=== PATIENT | female | born 1995 | race Two or more races ===

== ENCOUNTER 2017-02-01 08:01 | Emergency (ER) | payer OTHER ==
--- NOTE | 2017-02-01 08:23 | PDOC ---
History of Present Illness - General Stated Complaint: G-TUBE Time Seen by Provider: 02/01/17 08:20 History Source: Care Provider (Yary), [facility] Records - History of Present Illness Travel History: No Initial Comments: 02/01/17 08:36 [facility] H/O: Profound MR, CP, spastic quadriplegia, epilepsy, GERD reflux, cyclic vomiting, G -tube, nonverbal, failure to thrive, mild myopia, astigmatism 21 yo F biba acc with an aid (Arianne) who states her G-tube fell out sometime during this morning. Past History - Past Medical History Allergies/Adverse Reactions: Allergies Allergy/AdvReac Type Severity Reaction Status Date / Time No Known Allergies Allergy Verified 02/01/17 08:33 Home Medications: Ambulatory Orders Lacosamide [Vimpat -] 150 mg PEG BID 02/01/17 Loperamide HCl [Imodium -] 2 mg PEG TID PRN 02/01/17 Mag Carb/Al Hydrox/Alginic AC [Riginic Suspension] 10 ml PEG DAILY 02/01/17 Phenobarbital Liquid - [Phenobarbital Liquid 20 MG/5 ML -] 81 mg PEG BID Ranitidine Oral Solution [Zantac] 15 mg GT 02/01/17 Simethicone Liquid [Mylicon] 40 mg PEG BID 02/01/17 Topiramate [Topiramate ER] 100 mg PEG BID 02/01/17 Trimethobenzamide HCl [Tigan -] 300 mg PEG BID 02/01/17 Review of Systems - Review of Systems Comments:: 02/01/17 08:53 UTO pt is non verbal *Physical Exam - Physical Exam Comments: 02/01/17 08:53 GENERAL: CP HEENT: Normocephalic, atraumatic. PERRLA, EOMI. No conjunctival pallor. Sclera are non- icteric. Moist mucous membranes. Oropharynx is clear. NECK: Supple. Full ROM. No JVD. Carotid pulses 2+ and symmetric, without bruits. No thyromegaly. No lymphadenopathy. CARDIOVASCULAR: Regular rate and rhythm. No murmurs, rubs, or gallops. Distal pulses are 2+ and symmetric. PULMONARY: No evidence of respiratory distress. Lungs clear to auscultation bilaterally. No wheezing, rales or rhonchi. ABDOMINAL: Soft. Non-tender. Non-distended. No rebound or guarding. No organomegaly. Normoactive bowel sounds. EXTREMITIES: No cyanosis. No clubbing. No edema. No calf tenderness. SKIN: Warm and dry. Normal capillary refill. No rashes. No jaundice. ED Treatment Course - RADIOLOGY Radiograph Interpretation: 02/01/17 10:50 XR flat /uptr contrast in stomach Progress Note - Progress Note Progress Note: 1058hrs: Spoke to DR. Washburn/ [phone] advised the G tube is back in proper placement. "send her back" *DC/Admit/Observation/Transfer Diagnosis at time of Disposition: Gastrostomy tube in place - Discharge Dispostion Disposition: HOME Condition at time of disposition: Stable Admit: No - Referrals Referrals: Dharmesh Washburn MD [Primary Care Provider] - Hans Sutherland MD [Staff Physician] - - Patient Instructions Printed Discharge Instructions: How to Care for Your PEG Tube Additional Instructions: Follow up with your physician Return to the ER for recurrent symptoms
[2017-02-01 09:15] VITALS: TEMP 97.8; BMI 51.6
[2017-02-01 11:13] VITALS: BP 115/60; PULSE 68
== END 2017-02-01 13:23 | disposition home or self-care (01) ==
LOC: JER 08:01
PROC: 0D20XUZ Change Feeding Device in Upper Intestinal Tract, External Approach (ICD-10-PCS; principal; 2017-02-01)
DX: Z43.1 Encounter for attention to gastrostomy (principal); G80.0 Spastic quadriplegic cerebral palsy; F73 Profound intellectual disabilities; K21.9 Gastro-esophageal reflux disease without esophagitis; R62.7 Adult failure to thrive; H52.10 Myopia, unspecified eye; H52.209 Unspecified astigmatism, unspecified eye
CPT/HCPCS: 43760; 74000-TC; 99281-25

== ENCOUNTER 2018-10-26 06:24 | Emergency (ER) | payer OTHER ==
[2018-10-26 06:49] VITALS: TEMP 97.6; BMI 27.1
--- NOTE | 2018-10-26 07:14 | PDOC ---
Attending Attestation - Resident Resident Name: Derek Donis - HPI HPI: 10/26/18 09:02 Pt presents to the ED after removing her G tube. Unclear when tube was placed, but it has been replaced several times in our department, most recently in 2017. Tube was discovered pulled out at 5:50. - Physicial Exam PE: 10/26/18 09:09 pt is alert and in NAD, at her baseline mental status. Abdomen is soft, non tender and non distended. No inflammation or tenderness around G tube opening. - Medical Decision Making 10/26/18 16:51 Pt presents to the Ed complaining that her G tube has been pulled out. replaced in the ED. Tube is in place on CT. Will discharge home.
--- NOTE | 2018-10-26 07:17 | PDOC ---
History of Present Illness - General Chief Complaint: G Tube Problem Stated Complaint: G-TUBE PROBLEM Time Seen by Provider: 10/26/18 07:14 - History of Present Illness Initial Comments: The pt is a 22F w/ a history of developmental delay, epilepsy, and g-tube placement who presents s/p self-accidental removal of her G-tube at 0550 this morning. The pt has had this occur several times before and was previously replaced with a 16F g-tube. Pt attendant denies the pt having any recent illness or fevers and is at her baseline function today. 10/26/18 07:32 Past History - Past Medical History Allergies/Adverse Reactions: Allergies Allergy/AdvReac Type Severity Reaction Status Date / Time No Known Allergies Allergy Verified 10/26/18 06:47 Home Medications: Ambulatory Orders Lacosamide [Vimpat -] 200 mg PEG BID 02/01/17 Loperamide HCl [Imodium -] 2 mg PEG TID PRN 02/01/17 Mag Carb/Aluminum Hydrox/Algin [Riginic Suspension] 10 ml PEG DAILY 02/01/17 Simethicone Liquid [Mylicon] 40 mg PEG BID 02/01/17 Topiramate [Topiramate ER] 200 mg PEG BID 02/01/17 Trimethobenzamide HCl [Tigan -] 300 mg PEG TID 02/01/17 Acetaminophen [Tylenol] 325 mg GT Q4H PRN 02/14/18 Calcium Carbonate [Tums Ultra] 500 mg GT DAILY 02/14/18 Lacosamide [Vimpat -] 50 mg GT ASDIR 02/14/18 Omeprazole Magnesium [Prilosec] 20 mg GT DAILY 02/14/18 Pedi Multivit 158/Iron/Vit K1 [Cerovite Jr Tablet Chew] 1 each GT DAILY Phenobarbital 16.2 mg GT BID 02/14/18 Phenobarbital 64.8 mg GT BID 02/14/18 COPD: No GI Disorders: Yes (REFLUX,CYCLIC VOMITING) Seizures: Yes - Surgical History GI Surgery: Yes (PEG TUBE) - Immunization History Immunization Up to Date: Yes - Suicide/Smoking/Psychosocial Hx Smoking History: Unknown if ever smoked Have you smoked in the past 12 months: No Information on smoking cessation initiated: No Hx Alcohol Use: No Drug/Substance Use Hx: No Substance Use Type: None Review of Systems - Review of Systems Able to Perform ROS?: No (2/2 medical condition) *Physical Exam - Vital Signs Last Vital Signs Temp Pulse Resp BP Pulse Ox 97.6 F 92 H 16 88/57 L 97 10/26/18 06:47 10/26/18 06:47 10/26/18 06:47 10/26/18 06:47 10/26/18 06:47 - Physical Exam Comments: GENERAL: Awake, in no acute distress HEAD: No signs of trauma, normocephalic, atraumatic EYES: PERRLA, EOMI, sclera anicteric, conjunctiva clear LUNGS: No distress, clear to auscultation bilaterally HEART: Regular rate and rhythm, normal S1 and S2, no murmurs appreciated, peripheral pulses normal and equal bilaterally ABDOMEN: Soft, g-tube entry site w/o surrounding erythema or active discharge, no grimace to palpation SKIN: Warm, Dry 10/26/18 07:38 Medical Decision Making - Medical Decision Making The pt is a 22F w/ a history of developmental delay, seizure d/o, and g-tube in place who presents for evaluation s/p accidental self-removal of her g-tube at 0550 this morning. 16F g-tube placed; 3cm at the hub Will obtain placement film 10/26/18 07:46 Repeat Abdomen XR pending read -If g-tube in place will plan for D/C 10/26/18 12:08 Plain film not adequate for G-tube placement, will obtain CT abdomen for verification 10/26/18 12:54 CT w/ verification of tube placement Dr. Woodward notified and pt to go back to [facility] 10/26/18 14:12 *DC/Admit/Observation/Transfer Diagnosis at time of Disposition: Gastrostomy tube in place - Discharge Dispostion Disposition: HOME Condition at time of disposition: Stable Decision to Admit order: No - Referrals Referrals: Bharti Woodward MD [Primary Care Provider] - - Patient Instructions Printed Discharge Instructions: Gastrostomy: Permanent and Temporary Additional Instructions: You were seen in the Emergency Department for evaluation after accidental g- tube displacement. Review the handout provided at discharge. Follow up with your primary care physician within the week. Return to the Emergency Department if your tube falls out again, you develop fevers, leakage around the tube, redness at the insertion site, or any new/concerning symptoms. - Post Discharge Activity
[2018-10-26 10:13] VITALS: BP 92/71; PULSE 72
== END 2018-10-26 16:00 | disposition home or self-care (01) ==
LOC: JER 06:24
PROC: 0D20XUZ Change Feeding Device in Upper Intestinal Tract, External Approach (ICD-10-PCS; principal; 2018-10-26)
DX: K94.29 Other complications of gastrostomy (principal); G40.909 Epilepsy, unspecified, not intractable, without status epilepticus; R62.59 Other lack of expected normal physiological development in childhood
CPT/HCPCS: 74018-TC-FY; 74150-TC; 99282-25

== ENCOUNTER 2019-04-25 01:04 | Emergency (ER) | payer OTHER ==
--- NOTE | 2019-04-25 01:34 | PDOC ---
Attending Attestation - Resident Resident Name: Bulmaro Machado - ED Attending Attestation I have performed the following: I have examined & evaluated the patient, The case was reviewed & discussed with the resident, I agree w/resident's findings & plan - HPI HPI: 04/25/19 01:52 see resident hpi - Physicial Exam PE: 04/25/19 01:52 agree with resident exam - Medical Decision Making 04/25/19 01:52 23 yo female with dislodged g tube replaced in ED with 16F immediate return of gastric feed content will d/c to facility
[2019-04-25 01:46] VITALS: BP 89/64; PULSE 86; TEMP 97.8; BMI 21.4
--- NOTE | 2019-04-25 01:51 | PDOC ---
History of Present Illness - General Chief Complaint: G Tube Problem Stated Complaint: G-TUBE PROBLEM Time Seen by Provider: 04/25/19 01:31 History Source: Patient Exam Limitations: Clinical Condition, Physical Impairment - History of Present Illness Initial Comments: Marilia Garcia is a 23 yo F w a hx of Profound MR, CP, spastic quadriplegia, epilepsy, GERD reflux, cyclic vomiting, G-tube, nonverbal, failure to thrive, mild myopia, astigmatism BIBA [facility] for [facility]/ [facility] who presents for G tube dislodgement. There is an aid from the [facility] at bedside who confirms that the patient pulled out her G- tube. She has been seen in this ER several times for the same issue most recently on 10/26/18. Patient nurse aide at bedside states that patient was sleep and G tube dislodged 45 minutes [employer]. Aide at bedside denies N/V, F,C, SOB , urinary complaints, diarrhea, constipation, weakness. Per prior chart review patient has always received 16 italian G-tube replacements in this ED. Past History - Past Medical History Allergies/Adverse Reactions: Allergies Allergy/AdvReac Type Severity Reaction Status Date / Time No Known Allergies Allergy Verified 10/26/18 06:47 Home Medications: Ambulatory Orders Lacosamide [Vimpat -] 200 mg PEG BID 02/01/17 Loperamide HCl [Imodium -] 2 mg PEG TID PRN 02/01/17 Mag Carb/Aluminum Hydrox/Algin [Riginic Suspension] 10 ml PEG DAILY 02/01/17 Simethicone Liquid [Mylicon] 40 mg PEG BID 02/01/17 Topiramate [Topiramate ER] 200 mg PEG BID 02/01/17 Trimethobenzamide HCl [Tigan -] 300 mg PEG TID 02/01/17 Acetaminophen [Tylenol] 325 mg GT Q4H PRN 02/14/18 Calcium Carbonate [Tums Ultra] 500 mg GT DAILY 02/14/18 Lacosamide [Vimpat -] 50 mg GT ASDIR 02/14/18 Omeprazole Magnesium [Prilosec] 20 mg GT DAILY 02/14/18 Pedi Multivit 158/Iron/Vit K1 [Cerovite Jr Tablet Chew] 1 each GT DAILY Phenobarbital 16.2 mg GT BID 02/14/18 Phenobarbital 64.8 mg GT BID 02/14/18 COPD: No GI Disorders: Yes (REFLUX,CYCLIC VOMITING) Seizures: Yes - Surgical History GI Surgery: Yes (PEG TUBE) - Immunization History Immunization Up to Date: Yes - Psycho Social/Smoking Cessation Hx Smoking History: Unknown if ever smoked Have you smoked in the past 12 months: No Hx Alcohol Use: No Drug/Substance Use Hx: No Substance Use Type: None Review of Systems - Review of Systems Able to Perform ROS?: No (non-verbal) *Physical Exam - Vital Signs Last Vital Signs Temp Pulse Resp BP Pulse Ox 97.8 F 86 17 89/64 L 04/25/19 01:39 04/25/19 01:39 04/25/19 01:39 04/25/19 01:39 - Physical Exam General Appearance: Yes: Nourished. No: Apparent Distress HEENT: positive: Normal ENT Inspection Neck: positive: Supple Respiratory/Chest: positive: Lungs Clear Cardiovascular: positive: Regular Rhythm, Regular Rate Vascular Pulses: Dorsalis-Pedis (R): 2+, Doralis-Pedis (L): 2+ Gastrointestinal/Abdominal: positive: Normal Bowel Sounds, Other (patent G-tube foramen. No surrounding erythema or warmth. ). negative: Tender Rectal Exam: positive: deferred Lymphatic: negative: Adenopathy Musculoskeletal: positive: Decreased Range of Motion Extremity: positive: Normal Capillary Refill, Normal Inspection Integumentary: positive: Normal Color, Dry, Warm Neurologic: positive: Alert, Normal Mood/Affect, Respond to painful stimul Medical Decision Making - Medical Decision Making Marilia Garcia is a 23 yo F w a hx of Profound MR, CP, spastic quadriplegia, epilepsy, GERD reflux, cyclic vomiting, G-tube, nonverbal, failure to thrive, mild myopia, astigmatism BIBA from [facility] who presents for G tube dislodgement. There is an aid from the [place] [facility] at bedside who confirms that the patient pulled out her G- tube. She has been seen in this ER several times for the same issue most recently on 10/26/18. Patient nurse aide at bedside states that patient was sleep and G tube dislodged 45 minutes [employer]. Aide at bedside denies N/V, F,C, SOB , urinary complaints, diarrhea, constipation, weakness. Per prior chart review patient has always received 16 italian G-tube replacements in this ED. Vital Signs Temp Pulse Resp BP Pulse Ox 97.8 F 86 17 89/64 L 04/25/19 01:39 04/25/19 01:39 04/25/19 01:39 04/25/19 01:39 MDM: Patient presents with dislodged G-tube Plan: Replace G-tube with 16 italian feeding tube. 16 italian G-tube placed with immediate return of gastric contents Dispo: Back to Assisted living home. *DC/Admit/Observation/Transfer Diagnosis at time of Disposition: Gastrostomy tube in place - Discharge Dispostion Disposition: [facility] Condition at time of disposition: Improved Decision to Admit order: No - Referrals Referrals: Hans Sutherland MD [Staff Physician] - - Patient Instructions Printed Discharge Instructions: How to Care for Your PEG Tube Additional Instructions: Please follow up with your GI doctor in the next 3 days to make sure your G tube is working well and has no problems. Come back to the ER immediately if your G-tube comes out or you have any other new or worsening concerns. Thank you for coming to the [facility] ER. We hope you feel better soon ! Print Language: DUTCH - Post Discharge Activity Discharge - Discharge Information Problems reviewed: Yes Clinical Impression/Diagnosis: Gastrostomy tube in place Condition: Improved Disposition: [facility]IOR [facility]IVING [facility] - Follow up/Referral Referrals: Hans Sutherland MD [Staff Physician] - - Patient Discharge Instructions Patient Printed Discharge Instructions: How to Care for Your PEG Tube Additional Instructions: Please follow up with your GI doctor in the next 3 days to make sure your G tube is working well and has no problems. Come back to the ER immediately if your G-tube comes out or you have any other new or worsening concerns. Thank you for coming to the [facility] ER. We hope you feel better soon ! Print Language: DUTCH - Post Discharge Activity
== END 2019-04-25 04:20 ==
LOC: JER 01:04
PROC: 0D20XUZ Change Feeding Device in Upper Intestinal Tract, External Approach (ICD-10-PCS; principal; 2019-04-25)
DX: Z43.1 Encounter for attention to gastrostomy (principal); G80.0 Spastic quadriplegic cerebral palsy; G40.909 Epilepsy, unspecified, not intractable, without status epilepticus; K21.9 Gastro-esophageal reflux disease without esophagitis; G43.A0 Cyclical vomiting, in migraine, not intractable; R62.51 Failure to thrive (child); H52.10 Myopia, unspecified eye
CPT/HCPCS: 99282-25

== ENCOUNTER 2024-01-29 16:24 | Emergency (ER) | payer OTHER ==
[2024-01-29 16:31] VITALS: TEMP 98.3; BMI 25.7
[2024-01-29 17:49] LABS: BASO % 0.7 % (0-2.0); EOS % 0.6 % (0-4.5); HEMOGLOBIN 14.4 GM/dL (10.7-15.3); LYMPH % 22.1 % (8-40); MCH 30.4 pg (25.7-33.7); MCHC 33.6 g/dl (32.0-36.0); MEAN CELL VOLUME 90.6 fl (80-96); MEAN PLT VOLUME 6.1 fl (7.5-11.1); MONO % 6.4 % (3.8-10.2); NEUT % 70.2 % (42.8-82.8); PLATELET COUNT 591 10^3/uL (134-434); RBC 4.75 M/mm3 (3.60-5.2); RDW 12.8 % (11.6-15.6); WHITE BLOOD COUNT 6.1 K/mm3 (4.0-10.0)
[2024-01-29] MEDS: SODIUM CHLORIDE 1,000 ML IV STA (17:49)
[2024-01-29] MEDS: ONDANSETRON 4 MG/2 ML VIAL IVPUSH ONE (17:49)
[2024-01-29] MEDS ORDERED: ONDANSETRON 4 MG/2 ML VIAL ONE (17:50)
[2024-01-29 17:57] LABS: INR 1.07 (0.83-1.09); PROTHROMBIN TIME (PATIENT) 12.3 SEC (9.7-13.0)
[2024-01-29 18:00] LABS: ACTIVATED PTT 30.7 SECONDS (25.2-36.5)
[2024-01-29 18:07] LABS: POTASSIUM 3.4 mmol/L (3.5-5.1)
[2024-01-29 18:09] LABS: CALCIUM 9.7 mg/dL (8.5-10.1)
[2024-01-29 18:10] LABS: ALBUMIN 3.8 g/dl (3.4-5.0); BLOOD UREA NITROGEN 9.7 mg/dL (7-18); MAGNESIUM 2.2 mg/dL (1.8-2.4)
[2024-01-29 18:13] LABS: CREATININE 0.6 mg/dL (0.55-1.3)
[2024-01-29 18:14] LABS: BILIRUBIN,TOTAL 0.2 mg/dL (0.2-1); TOT PROT 7.9 g/dl (6.4-8.2)
[2024-01-29] MEDS ORDERED: POTASSIUM CHLORIDE ORAL LIQUID 20 MEQ/15 ML ONE ×2 (20:16→21:48)
[2024-01-29 20:46] LABS: EPI CELLS 33 /uL (0-25.1); HYALINE CASTS 3 /uL (0-3.1); URINE APPEARANCE CLEAR; URINE BACTERIA 23 /uL (0-1359); URINE BILIRUBIN 1+ (NEGATIVE); URINE COLOR DK YELLOW; URINE GLUCOSE (UA) NEGATIVE (NEGATIVE); URINE KETONE 2+ (NEGATIVE); URINE LEUK ESTERASE 1+ (NEGATIVE); URINE NITRITE NEGATIVE (NEGATIVE); URINE PROTEIN 1+ (NEGATIVE); URINE RBC 12 /uL (0-23.9); URINE WBC 51 /uL (0-25.8)
[2024-01-29] MEDS: POTASSIUM CHLORIDE ORAL LIQUID 20 MEQ/15 ML GT ONE (22:04)
[2024-01-29 22:09] VITALS: BP 110/70; PULSE 89; RESP 16
== END 2024-01-30 00:41 | disposition home or self-care (01) ==
LOC: JER 16:24
PROC: 3E033GC Introduction of Other Therapeutic Substance into Peripheral Vein, Percutaneous Approach (ICD-10-PCS; principal; 2024-01-29)
PROC: 3E0337Z Introduction of Electrolytic and Water Balance Substance into Peripheral Vein, Percutaneous Approach (ICD-10-PCS; 2024-01-29)
DX: R11.2 Nausea with vomiting, unspecified (principal); R19.7 Diarrhea, unspecified; R10.30 Lower abdominal pain, unspecified; Z20.822 Contact with and (suspected) exposure to COVID-19
CPT/HCPCS: 0241U-QW; 36415; 74176-TC; 80053; 81003; 83605; 83690; 83735; 84703; 85025; 85610; 85730; 86850; 86900; 86901; 87086; 99284-25

== ENCOUNTER 2025-02-22 11:22 | Inpatient (IN) | payer OTHER ==
[2025-02-22] MEDS ORDERED: ACETAMINOPHEN INJECTION 100 ML ONE (12:29)
[2025-02-22] MEDS: ACETAMINOPHEN 1000 MG/100 ML BAG IVPB ONE (12:31)
[2025-02-22] MEDS: SODIUM CHLORIDE 0.9% 500 ML INFUS.BAG IV ONE ×2 (12:31→16:37)
[2025-02-22] MEDS: LORazepam 2 MG/ML SDV VIAL IVPUSH ONE (12:45)
[2025-02-22] MEDS ORDERED: PIPERACILLIN/TAZOB 4.5 GM 4.5 GM/100 ML BAG IVPB ONE (13:11)
[2025-02-22] MEDS: PIPERACILLIN/TAZOB 4.5 GM 4.5 GM in DEXTROSE 5%-WATER 100 ML IVPB ONE (13:25)
[2025-02-22 13:35] LABS: EPI CELLS 21 /uL (0-25.1); HYALINE CASTS 4 /uL (0-3.1); URINE APPEARANCE CLOUDY; URINE BACTERIA 30 /uL (0-1359); URINE BILIRUBIN NEGATIVE (NEGATIVE); URINE COLOR DK YELLOW; URINE GLUCOSE (UA) NEGATIVE (NEGATIVE); URINE KETONE 1+ (NEGATIVE); URINE LEUK ESTERASE 1+ (NEGATIVE); URINE NITRITE NEGATIVE (NEGATIVE); URINE PROTEIN 1+ (NEGATIVE); URINE RBC 49 /uL (0-23.9); URINE UROBILINOGEN 1.0 mg/dL (0.2-1.0); URINE WBC 12 /uL (0-25.8)
[2025-02-22] MEDS ORDERED: ONDANSETRON 4 MG/2 ML VIAL ONE (13:49)
[2025-02-22 13:52] LABS: BG HCT 39.0 % (32.4-45.2); VENOUS BASE EXCESS -4.2 mmol/L (-2-2); VENOUS O2 SATURATION 82.9 % (70-80); VENOUS PCO2 35.6 mmHg (38-52); VENOUS PH 7.374 (7.310-7.410)
[2025-02-22 13:59] LABS: ABSOLUTE IMMATURE GRANULOCYTES 0.03 x10^3/uL (0.0-0.031); BASOPHILS # 0.03 x10^3/uL (0.01-0.08); EOSINOPHIL % 0.0 % (0.7-5.8); EOSINOPHILS # 0.00 x10^3/uL (0.04-0.36); MCHC 32.0 g/dl (32.2-35.5); MEAN CELL VOLUME 93.4 fl (79.4-94.8); MEAN PLT VOLUME 8.5 fl (9.4-12.3); MONOCYTE # 0.23 x10^3/uL (0.24-0.86); MONOCYTE % 2.9 % (4.7-12.5); RDW 12.0 % (12.1-16.5)
[2025-02-22] MEDS: ONDANSETRON 4 MG/2 ML VIAL IVPUSH ONE (14:00)
[2025-02-22] MEDS ORDERED: VANCOMYCIN 1 GRAM (PRE-DOCKED) 1,000 MG/250 ML BAG IVPB ONE (14:01)
[2025-02-22 14:08] LABS: INR 1.19 (0.83-1.09); PROTHROMBIN TIME (PATIENT) 13.1 SEC (9.7-13.0)
[2025-02-22 14:11] LABS: ACTIVATED PTT 28.7 SECONDS (25.2-36.5)
[2025-02-22] MEDS: VANCOMYCIN 1,000 MG in DEXTROSE 5%-WATER - 250 ML IVPB ONE ×2 (14:11→14:14)
[2025-02-22] MEDS: PIPERACILLIN/TAZOB 3.375 GM 3.375 GM in DEXTROSE 5%-WATER - 50 ML IVPB ONE (14:14)
[2025-02-22 14:29] LABS: CO2 23.0 mmol/L (21-32); GLUCOSE,RANDOM 127.0 mg/dL (74-106)
[2025-02-22 14:32] LABS: CREATININE 0.5 mg/dL (0.55-1.3); SGOT/AST 24.0 U/L (15-37); SGPT/ALT 46.0 U/L (13-61)
[2025-02-22 14:33] LABS: TOT PROT 6.4 g/dl (6.4-8.2)
[2025-02-22 14:35] LABS: ALK PHOS 103.0 U/L (45-117)
[2025-02-22] MEDS ORDERED: PANTOPRAZOLE SODIUM 40 MG VIAL ONE ×2 (14:38→19:46)
[2025-02-22] MEDS: PANTOPRAZOLE SODIUM 40 MG VIAL IVPUSH ONE (14:52)
[2025-02-22 15:33] LABS: HIV INTERPRETATION NEGATIVE (NEGATIVE)
[2025-02-22 15:36] LABS: HCV DIAGNOSTIC IN-HOUSE W/RFLX NON-REACTIVE (NONREACTIVE)
[2025-02-22 16:13] LABS: MCHC 32.7 g/dl (32.2-35.5); MEAN CELL VOLUME 91.7 fl (79.4-94.8); MEAN PLT VOLUME 8.1 fl (9.4-12.3); RDW 11.9 % (12.1-16.5)
[2025-02-22] MEDS: SODIUM CHLORIDE 1,000 ML IV STA (19:40)
[2025-02-22] MEDS: PANTOPRAZOLE SODIUM 160 MG in SODIUM CHLORIDE 290 ML IVPB SCH (20:05)
[2025-02-22] MEDS ORDERED: TOPIRAMATE PEG SCH (20:32)
[2025-02-23] MEDS: PIPERACILLIN/TAZOB 3.375 GM 3.375 GM in DEXTROSE 5%-WATER - 50 ML IVPB SCH (02:08)
[2025-02-23] MEDS ORDERED: LORazepam 4 MG/1 ML VIAL IVPUSH PRN (06:30)
[2025-02-23 08:49] LABS: MCHC 31.4 g/dl (32.2-35.5); MEAN CELL VOLUME 94.4 fl (79.4-94.8); MEAN PLT VOLUME 8.7 fl (9.4-12.3); RDW 12.0 % (12.1-16.5)
[2025-02-23 09:33] LABS: CO2 26 mmol/L (21-32); GLUCOSE,RANDOM 100 mg/dL (74-106)
[2025-02-23 09:36] LABS: CREATININE 0.3 mg/dL (0.55-1.3); SGOT/AST 23 U/L (15-37); SGPT/ALT 39 U/L (13-61)
[2025-02-23 09:38] LABS: TOT PROT 5.6 g/dl (6.4-8.2)
[2025-02-23 09:39] LABS: ALK PHOS 90 U/L (45-117)
[2025-02-23] MEDS ORDERED: LACOSAMIDE 50 MG TABLET PO SCH (10:00)
[2025-02-23] MEDS: Lacosamide 50 MG/5 ML ORAL SOLUTION UNIT CUPS GT SCH (11:04)
[2025-02-23] MEDS: TOPIRAMATE 200 MG TABLET GT SCH (11:37)
[2025-02-23] MEDS: ACETAMINOPHEN 1000 MG/100 ML BAG IVPB PRN (16:34)
[2025-02-23] MEDS: SODIUM CHLORIDE 1,000 ML IV SCH (17:59)
[2025-02-23] MEDS: LACTOBACILLUS ACIDOPHILUS 1 TABLET GT SCH (22:28)
[2025-02-24 07:12] LABS: ABSOLUTE IMMATURE GRANULOCYTES 0.01 x10^3/uL (0.0-0.031); BASOPHILS # 0.06 x10^3/uL (0.01-0.08); EOSINOPHIL % 4.4 % (0.7-5.8); EOSINOPHILS # 0.28 x10^3/uL (0.04-0.36); MCHC 31.5 g/dl (32.2-35.5); MEAN CELL VOLUME 94.9 fl (79.4-94.8); MEAN PLT VOLUME 8.7 fl (9.4-12.3); MONOCYTE # 0.46 x10^3/uL (0.24-0.86); MONOCYTE % 7.2 % (4.7-12.5); RDW 11.9 % (12.1-16.5)
[2025-02-24 08:17] LABS: CO2 19.0 mmol/L (21-32); GLUCOSE,RANDOM 66.0 mg/dL (74-106)
[2025-02-24 08:19] LABS: SGOT/AST 23.0 U/L (15-37); SGPT/ALT 36.0 U/L (13-61)
[2025-02-24 08:20] LABS: CREATININE 0.4 mg/dL (0.55-1.3)
[2025-02-24 08:21] LABS: TOT PROT 5.8 g/dl (6.4-8.2)
[2025-02-24 08:22] LABS: ALK PHOS 94.0 U/L (45-117)
[2025-02-24] MEDS ORDERED: PANTOPRAZOLE SODIUM 40 MG VIAL IVPUSH SCH (22:00)
[2025-02-25] MEDS ORDERED: PIPERACILLIN/TAZOB 3.375 GM 3.375 GM in DEXTROSE 5%-WATER - 50 ML IVPB SCH (02:00)
[2025-02-25 07:39] LABS: ABSOLUTE IMMATURE GRANULOCYTES 0.01 x10^3/uL (0.0-0.031); BASOPHILS # 0.05 x10^3/uL (0.01-0.08); EOSINOPHIL % 6.6 % (0.7-5.8); EOSINOPHILS # 0.29 x10^3/uL (0.04-0.36); MCHC 32.1 g/dl (32.2-35.5); MEAN CELL VOLUME 92.4 fl (79.4-94.8); MEAN PLT VOLUME 8.5 fl (9.4-12.3); MONOCYTE # 0.29 x10^3/uL (0.24-0.86); MONOCYTE % 6.6 % (4.7-12.5); RDW 11.8 % (12.1-16.5)
[2025-02-25 09:00] LABS: GLUCOSE,RANDOM 128.0 mg/dL (74-106)
[2025-02-25 09:01] LABS: CO2 25.0 mmol/L (21-32)
[2025-02-25 09:03] LABS: CREATININE 0.4 mg/dL (0.55-1.3); SGOT/AST 24.0 U/L (15-37); SGPT/ALT 40.0 U/L (13-61)
[2025-02-25 09:04] LABS: TOT PROT 6.5 g/dl (6.4-8.2)
[2025-02-25 09:06] LABS: ALK PHOS 110.0 U/L (45-117)
[2025-02-25] MEDS: PANTOPRAZOLE SODIUM 40 MG VIAL IVPUSH SCH (09:35)
[2025-02-25] MEDS ORDERED: IRON GT SCH (10:00)
[2025-02-25] MEDS ORDERED: PEDI MULTIVIT GT SCH (10:00)
[2025-02-25] MEDS ORDERED: [UNRECOGNIZED DRUG - OTHER] GT SCH (10:00)
[2025-02-25] MEDS ORDERED: VIT K1 GT SCH (10:00)
[2025-02-25] MEDS: levETIRAcetam 500 MG/5 ML INJECTION VIAL IVPB SCH (13:00)
[2025-02-25] MEDS: LACTOBACILLUS ACIDOPHILUS 1 TABLET PO ONE (13:01)
[2025-02-25] MEDS ORDERED: PANTOPRAZOLE SODIUM 40 MG VIAL IVPUSH SCH (22:00)
[2025-02-25] MEDS: LACTOBACILLUS ACIDOPHILUS 1 TABLET GT SCH (22:31)
[2025-02-25] MEDS: levETIRAcetam 500 MG/5 ML ORAL SOLUTION (UNIT-DOSE CUPS) PO SCH (22:31)
[2025-02-26 06:46] LABS: MCHC 33.2 g/dl (32.2-35.5); MEAN CELL VOLUME 90.3 fl (79.4-94.8); MEAN PLT VOLUME 8.6 fl (9.4-12.3); RDW 11.8 % (12.1-16.5)
[2025-02-26 08:09] LABS: ALK PHOS 112.0 U/L (45-117); CO2 24.0 mmol/L (21-32); CREATININE 0.5 mg/dL (0.55-1.3); GLUCOSE,RANDOM 118.0 mg/dL (74-106); SGOT/AST 24.0 U/L (15-37); SGPT/ALT 41.0 U/L (13-61); TOT PROT 6.6 g/dl (6.4-8.2)
[2025-02-26] MEDS: HEPARIN NA (PORCINE) 5,000 UNITS/ML 1ML VIAL SQ SCH (21:34)
[2025-02-26] MEDS: RUFINAMIDE 40 MG/ML GT SCH (22:34)
[2025-02-27 06:49] LABS: ABSOLUTE IMMATURE GRANULOCYTES 0.01 x10^3/uL (0.0-0.031); BASOPHILS # 0.05 x10^3/uL (0.01-0.08); EOSINOPHIL % 6.9 % (0.7-5.8); EOSINOPHILS # 0.31 x10^3/uL (0.04-0.36); MCHC 32.5 g/dl (32.2-35.5); MEAN CELL VOLUME 92.8 fl (79.4-94.8); MEAN PLT VOLUME 8.7 fl (9.4-12.3); MONOCYTE # 0.52 x10^3/uL (0.24-0.86); MONOCYTE % 11.6 % (4.7-12.5); RDW 12.1 % (12.1-16.5)
[2025-02-27 07:23] LABS: CO2 21.0 mmol/L (21-32); GLUCOSE,RANDOM 107.0 mg/dL (74-106); SGPT/ALT 45.0 U/L (13-61)
[2025-02-27 07:25] LABS: ALK PHOS 108.0 U/L (45-117); TOT PROT 6.3 g/dl (6.4-8.2)
[2025-02-27 07:26] LABS: CREATININE 0.4 mg/dL (0.55-1.3); SGOT/AST 23.0 U/L (15-37)
[2025-02-27] MEDS ORDERED: ACETAMINOPHEN 1000 MG/100 ML BAG IVPB PRN (20:16)
[2025-02-27] MEDS: LACTOBACILLUS ACIDOPHILUS 1 TABLET GT SCH (22:59)
[2025-02-27] MEDS: PANTOPRAZOLE SODIUM 40 MG VIAL IVPUSH SCH (22:59)
[2025-02-27] MEDS: TOPIRAMATE 200 MG TABLET GT SCH (23:00)
[2025-02-28] MEDS: Lacosamide 50 MG/5 ML ORAL SOLUTION UNIT CUPS GT SCH (00:51)
[2025-02-28 09:11] LABS: ABSOLUTE IMMATURE GRANULOCYTES 0.01 x10^3/uL (0.0-0.031); BASOPHILS # 0.05 x10^3/uL (0.01-0.08); EOSINOPHIL % 2.2 % (0.7-5.8); EOSINOPHILS # 0.12 x10^3/uL (0.04-0.36); MCHC 32.6 g/dl (32.2-35.5); MEAN CELL VOLUME 91.0 fl (79.4-94.8); MEAN PLT VOLUME 9.2 fl (9.4-12.3); MONOCYTE # 0.34 x10^3/uL (0.24-0.86); MONOCYTE % 6.1 % (4.7-12.5); RDW 12.4 % (12.1-16.5)
[2025-02-28 10:00] LABS: CO2 22.0 mmol/L (21-32); GLUCOSE,RANDOM 118.0 mg/dL (74-106)
[2025-02-28 10:02] LABS: CREATININE 0.5 mg/dL (0.55-1.3); SGPT/ALT 76.0 U/L (13-61)
[2025-02-28 10:03] LABS: SGOT/AST 41.0 U/L (15-37)
[2025-02-28 10:05] LABS: ALK PHOS 127.0 U/L (45-117); TOT PROT 7.4 g/dl (6.4-8.2)
[2025-02-28 14:26] VITALS: BMI 16.6
[2025-02-28 15:59] VITALS: BP 99/83; PULSE 122; RESP 20; TEMP 98.8
== END 2025-02-28 16:07 | disposition home or self-care (01) | DRG 720 ==
LOC: JER 11:22 → JERBED 19:42 → J4W 20:58 → J5S 02-27 19:56
PROVIDERS: ADMIT Hospitalist
DX: A41.9 Sepsis, unspecified organism (principal); G82.50 Quadriplegia, unspecified; K92.0 Hematemesis; R56.9 Unspecified convulsions; H52.10 Myopia, unspecified eye; R62.50 Unspecified lack of expected normal physiological development in childhood; S43.005A Unspecified dislocation of left shoulder joint, initial encounter; X58.XXXA Exposure to other specified factors, initial encounter; Y93.9 Activity, unspecified; Y92.89 Other specified places as the place of occurrence of the external cause; Y99.9 Unspecified external cause status
CPT/HCPCS: 36415; 71045-TC-FY; 73030-TC-LT-FY; 73030-TC-RT-FY; 74019-TC-FY; 74177-TC; 80053; 80184; 81003; 82272; 82803; 83605; 83735; 84100; 84484; 85025; 85027; 85610; 85730; 86803; 86850; 86900; 86901; 87040; 87045; 87046; 87086; 87389; 87635; 87637-QW; 93005; 93010; 95816; 99285-25; Q9967